=== PATIENT | female | born 1990 | race Caucasian/White ===

== ENCOUNTER → 2019-04-08 | Outpatient (CLI) | payer BC ==
--- NOTE | 2019-04-08 20:30 | RAD ---
PA and lateral chest. HISTORY: Cough, congestion PA and lateral views were taken of the chest. Lungs are free of infiltrates. Heart is normal in size. There is no pleural effusion. IMPRESSION: 1. No acute infiltrates. Electronically signed by: Tyree Alcaraz MD (04/08/2019 8:27 PM) [facility]
== END | disposition home or self-care (01) ==
LOC: RAD 18:59
PROVIDERS: ATTEND Obstetrics & Gynecology
DX: O99.513 Diseases of the respiratory system complicating pregnancy, third trimester (principal); J10.1 Influenza due to other identified influenza virus with other respiratory manifestations; R09.89 Other specified symptoms and signs involving the circulatory and respiratory systems; Z3A.29 29 weeks gestation of pregnancy
CPT/HCPCS: 71046